=== PATIENT | male | born 1990 | race Caucasian/White ===

== ENCOUNTER 2016-04-28 18:32 | Emergency (ER) | payer OTHER ==
[~2016-04-28] VITALS: Ht 180.3 cm; Wt 63.5 kg
[2016-04-28 18:42] VITALS: BP 126/81
== END 2016-04-28 20:09 | disposition home or self-care (01) ==
LOC: ER 18:34
DX: Z76.0 Encounter for issue of repeat prescription (principal); G40.909 Epilepsy, unspecified, not intractable, without status epilepticus; F43.10 Post-traumatic stress disorder, unspecified
CPT/HCPCS: 99283; A4606; Z7610

== ENCOUNTER 2016-05-03 14:46 | Emergency (ER) | payer OTHER ==
[~2016-05-03] VITALS: Ht 182.9 cm; Wt 4.5 kg
[2016-05-03 14:50] VITALS: BP 135/81
[2016-05-03] MEDS ORDERED: HYDROCODONE/APAP 5/325MG 1 EACH TABLET ONE (15:07)
[2016-05-03] MEDS: HYDROCODONE/APAP 5/325MG 1 EACH TABLET PO STA (15:12)
--- NOTE | 2016-05-03 15:12 | NUR ---
pt to radiology for head and facial ct scan via wheelchair.
== END 2016-05-03 16:00 | disposition home or self-care (01) ==
LOC: ER 15:06
DX: S00.12XA Contusion of left eyelid and periocular area, initial encounter (principal); G40.909 Epilepsy, unspecified, not intractable, without status epilepticus; Y04.0XXA Assault by unarmed brawl or fight, initial encounter; Y92.89 Other specified places as the place of occurrence of the external cause; Y93.89 Activity, other specified; Y99.8 Other external cause status
CPT/HCPCS: 70450; 70486; 99284; A4606; Z7610